=== PATIENT | male | born 1980 | race Caucasian/White ===

== ENCOUNTER 2017-06-28 07:08 | Emergency (ER) | payer BC ==
[2017-06-28 07:16] VITALS: BP 153/87
--- NOTE | 2017-06-28 09:06 | UC ---
Ruth Sun Alfonso, scribed for Tawanna Veliz DO on 06/28/17 at 0730 . Throat Pain/Nasal Toribio HPI - HPI Summary HPI Summary: This patient is a 36 year old M presenting to [facility] with a chief complaint of a sore throat since yesterday afternoon. He states the pain is worse in the morning and it is probably strep I get it 4-5 times a year. The patient rates the sharp, like I am swallowing glass, pain 5/10 in severity. Symptoms aggravated by swallowing. Symptoms alleviated by nothing. Symptoms not alleviated by ibuprofen. Patient reports rhinorrhea (clear discharge and currently resolved). Patient denies fever, chills, diaphoresis, cough, ear ache , sinus pressure, CP, SOB, and N/V. He states the strep throat does not interfere with drinking water. - History of Current Complaint Chief Complaint: UCGeneralIllness Stated Complaint: SORE THROAT, STUFFY NOSE Time Seen by Provider: 06/28/17 07:19 Hx Obtained From: Patient Onset/Duration: Gradual Onset, Lasting Days - yesterday afternoon, Still Present Severity: Moderate Pain Intensity: 5 Pain Scale Used: 0-10 Numeric Associated Signs & Symptoms: Positive: Dysphagia - PAIN, Other - rhinorrhea ( clear discharge and currently resolved). Patient denies fever, chills, diaphoresis, cough, ear ache, sinus pressure, CP, SOB, and N/V.. Negative: FB Sensation, Drooling, Wheezing, Hoarseness, Sinus Discomfort, Nasal Discharge, Fever, Vomiting, Rash - Allergies/Home Medications Allergies/Adverse Reactions: Allergies Allergy/AdvReac Type Severity Reaction Status Date / Time Penicillins [PCN] Allergy Unknown Verified 06/28/17 07:17 Reaction Details Home Medications: Home Medications Ibuprofen [Ibuprofen 200 MG] 600 mg PO Q6HR PRN 06/28/17 [History Confirmed ] PMH/Surg Hx/FS Hx/Imm Hx - Additional Past Medical History Additional PMH: H/O RECURRENT STREP THROAT Previously Healthy: No Psychological History: Other - Claustrophobia Other Psychological History: Claustrophobia - Surgical History Surgical History: Yes Surgery Procedure, Year, and Place: Lt KNEE -PARTIAL RECON - SEP 2014. KNEE ARTHROSOCPY-LEFT. METAL PLATE IN ANKLE-RIGHT ( METAL PLATE REMOVED). LASIX - EYE - Family History Known Family History: Positive: Hypertension Negative: Cardiac Disease - Social History Alcohol Use: Weekly Alcohol Amount: 12-15 WEEKLY Substance Use Type: None Smoking Status (MU): Former Smoker Type: eCigarettes Amount Used/How Often: Daily Length of Time of Smoking/Using Tobacco: 12 YEARS - Immunization History Most Recent Influenza Vaccination: 05/2017 Review of Systems Constitutional: Other - Negative fever, chills, diaphoresis Skin: Negative ENT: Sore Throat, Nasal Discharge - RESOLVED, Other - Negative ear ache, sinus pressure Respiratory: Other - Negative cough and SOB Cardiovascular: Other - Negative CP Gastrointestinal: Other - Negative N/V All Other Systems Reviewed And Are Negative: Yes Physical Exam Triage Information Reviewed: Yes Appearance: Well-Appearing, No Pain Distress, Well-Nourished Vital Signs: Initial Vital Signs Temp 98.2 F 06/28/17 07:10 Pulse 100 06/28/17 07:10 Resp 16 06/28/17 07:10 BP 153/87 06/28/17 07:10 Pulse Ox 100 06/28/17 07:10 Vital Signs Reviewed: Yes Eyes: Positive: Conjunctiva Clear. Negative: Discharge ENT: Positive: Hearing grossly normal, Pharyngeal erythema, TMs normal. Negative: Tonsillar swelling, Tonsillar exudate, Trismus, Hoarse voice Neck exam: Normal Neck: Positive: Supple Respiratory: Positive: Lungs clear, Normal breath sounds, No respiratory distress, No accessory muscle use Cardiovascular: Positive: RRR, No Murmur Abdomen Description: Positive: Nontender, Soft. Negative: Distended, Guarding Bowel Sounds: Positive: Present Musculoskeletal Exam: Normal Neurological: Positive: Alert, Muscle Tone Normal Psychological Exam: Normal Psychological: Positive: Age Appropriate Behavior Skin Exam: Normal Skin: Positive: Other - warm, dry, normal color Throat Pain/Nasal Course/Dx - Course Assessment/Plan: Group A rapid strep test negative. Patient will be discharged with follow up from PCP. The patient is agreeable with this plan. Medications reviewed. Allergies reviewed. High blood pressure noted. - Differential Dx/Diagnosis Differential Diagnosis/HQI/PQRI: Pharyngitis, Sinusitis, Tonsillitis, URI Provider Diagnoses: SORE THROAT, Elevated blood pressure without diagnosis of hypertension. Discharge - Discharge Plan Condition: Stable Disposition: HOME Patient Education Materials: Pharyngitis (ED) Referrals: Patrizia Mcdaniel MD [Primary Care Provider] - 3 Days Additional Instructions: YOUR RAPID STREP TEST WAS NEGATIVE. BECAUSE YOU GET STREP 4-5 TIMES A YEAR, AND FEEL THOUGH YOUR SYMPTOMS ARE CONSISTENT WITH PRIOR INFECTIONS, WE ARE SENDING IN A CULTURE TO CONFIRM THE RAPID TEST WE DO HERE IN THE CLINIC. THE CULTURE WILL TAKE ABOUT 2 DAYS. WE WILL CALL YOU IF IT COMES BACK POSITIVE FOR STREP. SINCE YOU HAVE BEEN GETTING STREP RECURRENTLY FOR SOME YEARS, WE HAVE SUGGESTED THAT ACUPUNCTURE MAY HELP TO SUPPORT YOUR IMMUNE SYSTEM AND DECREASE YOUR NEED FOR ANTIBIOTICS. [facility] - Dominique Marinelli L.Ac. Acupuncture clinic in [place], [place] Address: [address] [place] [address] [facility] in [place], [place] Address: [address] [place] [address] Your blood pressure was elevated at this visit. That does not mean you have hypertension, it is probably due to your current condition. Please follow up with your primary care provider. The documentation as recorded by the Ruth coyne Alfonso accurately reflects the service I personally performed and the decisions made by me, Tawanna Veliz DO.
== END 2017-06-28 08:13 | disposition home or self-care (01) ==
LOC: UCEAST 07:08
DX: J02.9 Acute pharyngitis, unspecified (principal); R03.0 Elevated blood-pressure reading, without diagnosis of hypertension; Z87.891 Personal history of nicotine dependence
CPT/HCPCS: 87070; 87077; 87651; 99211; G0463